=== PATIENT | female | born 1950 | race Caucasian/White ===

== ENCOUNTER 2017-01-08 08:54 | Day surgery (SDC) | payer MEDICARE, BC ==
[2017-01-02 11:27] LABS: HEMATOCRIT 40.7 % (36.0-47.0); HEMOGLOBIN 14.3 g/dL (12.0-15.5); HGB HCT DIFFERENCE 2.2; MEAN CORPUSCULAR HGB CONC 35.2 g/dL (32.0-36.0); MEAN CORPUSCULAR VOLUME 85 fl (80-97); RED BLOOD COUNT 4.77 10^6/uL (3.72-5.28); RED CELL DISTRIBUTION WIDTH 13.5 % (11.5-14.0); WHITE BLOOD COUNT 6.5 10^3/uL (4.0-10.5)
[2017-01-02 11:32] LABS: AMORPHOUS SEDIMENT,URINE TRACE /HPF; APPEARANCE,URINE TURBID; BILIRUBIN,URINE NEGATIVE (NEGATIVE); GLUCOSE, URINE NEGATIVE (NEGATIVE); KETONES,URINE NEGATIVE (NEGATIVE); LEUKOCYTE ESTERASE,URINE NEGATIVE (NEGATIVE); NITRITE,URINE NEGATIVE (NEGATIVE); PROTEIN,URINE NEGATIVE (NEGATIVE); UROBILINOGEN,URINE NEGATIVE mg/dL (<2.0)
[~2017-01-08 08:54] MED LIST: LACTATED RINGERS 1000 ML IV PRN; LIDOCAINE 0.5% INJ-PF (5 MG/ML) 50 ML SDV SUBCUT PRN
[2017-01-08] MEDS ORDERED: MIDAZOLAM 2 MG/2 ML INJ ONE (10:13)
[2017-01-08] MEDS ORDERED: FENTANYL CITRATE INJ/PF 100 MCG/2 ML AMPUL ONE (10:13)
[2017-01-08] MEDS ORDERED: PROPOFOL INJ 200 MG/20 ML VIAL IV ONE (10:13)
[2017-01-08] MEDS ORDERED: FENTANYL CITRATE INJ/PF 100 MCG/2 ML AMPUL IV PRN ×2 (10:53)
[2017-01-08] MEDS ORDERED: DIPHENHYDRAMINE HCL 50 MG/ML VIAL IV PRN (10:53)
[2017-01-08] MEDS ORDERED: OXYCODONE-ACETAMINOPHEN 5-325 MG TABLET PO PRN ×2 (11:51)
[2017-01-08] MEDS ORDERED: ONDANSETRON HCL INJ/PF 4 MG/2 ML SDV ONE (11:58)
[2017-01-08] MEDS ORDERED: LIDOCAINE 2% INJ-PF (20 MG/ML) 10 ML AMPUL ONE (11:58)
[2017-01-08] MEDS ORDERED: GLYCOPYRROLATE INJ 0.4 MG/2 ML VIAL ONE (11:58)
[2017-01-08] MEDS ORDERED: DEXAMETHASONE SOD PHOSPHATE INJ 4 MG/1 ML VIAL ONE (11:58)
--- NOTE | 2017-01-08 12:07 | OPERATIVE REPORT E ---
Operative Report NAME: DEE ALFARO : 1950 AGE: 66Y DATE OF SURGERY: 01/08/2017 ROOM: PREOPERATIVE DIAGNOSIS: Postmenopausal bleeding. POSTOPERATIVE DIAGNOSIS: Postmenopausal bleeding. PROCEDURE: Dilation and curettage. SURGEON: JANI URIARTE M.D. ANESTHESIA: Dr. Mayes with [facility]. FINDINGS: Very stenotic nulliparous appearing cervix flush to the vaginal cuff. Unable to dilate the cervix past 6 mm due to stenosis and atrophy. ESTIMATED BLOOD LOSS: 50 mL. SPECIMENS REMOVED: Endometrial curettings. PROCEDURE IN DETAIL: The patient was taken to the operating room, prepared and draped in a normal sterile fashion in a dorsal lithotomy position. Under sterile conditions, an in-and-out cath was performed with approximately 10 mL of clear urine. A sterile speculum was then placed into the vagina. The cervix was prepped with Betadine and grasped on the anterior aspect with a single tooth tenaculum. Starting with the micro dilators, I was able to pass through the cervical os but was never able to pass the sound. I did serial dilation until I reached a 6 mm Portuguese but was not able to dilate further. I did attempt to pass a regular small curette but was unable to pass this, so I did ask for the Kevorkian curette and passed this without too much difficulty with several passes to obtain adequate sampling. Sampling was placed on Telfa and passed off the field. Throughout this procedure, the tenaculum unfortunately did tear through the cervix a few times. I removed the tenaculum at this point and noticed that there was a small amount of bleeding that dampened with some tamponade, however, due to its continued oozing I did place a stitch with 2-0 chromic at the anterior left aspect of the cervix for hemostasis. Hemostasis was obtained at this point and all instruments were removed. The patient was taken down from dorsal lithotomy position and taken to recovery in stable condition. DICTATING PHYSICIAN: JANI URIARTE M.D. [id number] PHY#: [id number] ID: [id number] JOB#: [id number] ACCT: [id number] cc:JANI URIARTE M.D. >
[2017-01-08] MEDS ORDERED: IBUPROFEN 800 MG TABLET PO PRN (12:15)
[2017-01-08] MEDS ORDERED: MORPHINE SULFATE 10 MG/ML INJ IM PRN (12:15)
[2017-01-08 13:53] VITALS: BP 146/74
== END 2017-01-08 13:25 | disposition home or self-care (01) ==
LOC: OROUT 08:54
PROVIDERS: ATTEND Obstetrics & Gynecology
PROC: 0UDB7ZX Extraction of Endometrium, Via Natural or Artificial Opening, Diagnostic (ICD-10-PCS; principal; 2017-01-08 11:00)
DX: N95.0 Postmenopausal bleeding (principal); N88.2 Stricture and stenosis of cervix uteri; N93.9 Abnormal uterine and vaginal bleeding, unspecified; E78.00 Pure hypercholesterolemia, unspecified; Z87.891 Personal history of nicotine dependence
CPT/HCPCS: 36415; 85027; 81001; 88305 ×2; 58120; J2250; J1100; J3010; J2405; J2704; J3490; 940

== ENCOUNTER 2017-10-03 19:38 | Emergency (ER) | payer MEDICARE, BC ==
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
--- NOTE | 2017-10-03 21:12 | RADIOLOGY REPORT (SQ) ---
EXAM DESCRIPTION: T SPINE AP/LAT COMPLETED DATE/TIME: 10/03/2017 8:40 pm REASON FOR STUDY: TTP at T12 L1 COMPARISON: None. NUMBER OF VIEWS: Two views. TECHNIQUE: AP and lateral radiographic images acquired of the thoracic spine. LIMITATIONS: None. FINDINGS: MINERALIZATION: Normal. ALIGNMENT: Normal. No scoliosis. VERTEBRAE: No fracture or bone lesion. Maintained height, normal segmentation. DISCS: Multilevel disc space narrowing with osteophytes. HARDWARE: None in the spine. MEDIASTINUM AND SOFT TISSUES: Normal heart size and aortic contour. No soft tissue abnormality. VISUALIZED LUNG RUELAS: Clear. OTHER: No other significant finding. IMPRESSION: SPONDYLOSIS WITHOUT BONE LESION OR FRACTURE. TECHNICAL DOCUMENTATION: JOB ID: [id number] [id number] 2010 [employer]- All Rights Reserved Reading location - IP/workstation name: [email or web address]
--- NOTE | 2017-10-03 21:13 | RADIOLOGY REPORT (SQ) ---
EXAM DESCRIPTION: L SPINE WHOLE COMPLETED DATE/TIME: 10/03/2017 8:40 pm REASON FOR STUDY: TTP at T12 L1 COMPARISON: None. NUMBER OF VIEWS: Five views including obliques. TECHNIQUE: AP, lateral, oblique, and sacral radiographic images acquired of the lumbar spine. LIMITATIONS: None. FINDINGS: MINERALIZATION: Normal. SEGMENTATION: Normal. No transitional anatomy. ALIGNMENT: Grade 2 anterolisthesis of L5 on S1 due to bilateral pars interarticularis defects. VERTEBRAE: Maintained height. No fracture or worrisome bone lesion. DISCS: Multilevel disc space narrowing with osteophytes. POSTERIOR ELEMENTS: Grade 2 anterolisthesis of L5 on S1 due to bilateral pars interarticularis defect s.Facet arthropathy is present. HARDWARE: None in the spine. PARASPINAL SOFT TISSUES: Normal. PELVIS: Intact as visualized. No fractures or worrisome bone lesions. SI joints intact. OTHER: No other significant finding. IMPRESSION: Grade 2 anterolisthesis of L5 on S1 due to bilateral pars interarticularis defects. No acute fracture. TECHNICAL DOCUMENTATION: JOB ID: [id number] [id number] 2010 [employer]- All Rights Reserved Reading location - IP/workstation name: [email or web address]
[2017-10-03] MEDS ORDERED: HYDROCODONE/ACETAMINOPHEN 5-325 MG TABLET PO ONE (21:44)
[2017-10-03 21:59] VITALS: BP 158/72
== END 2017-10-03 21:59 | disposition home or self-care (01) ==
LOC: ER 19:38
DX: M43.17 Spondylolisthesis, lumbosacral region (principal); M54.5 Low back pain; V18.2XXA Unspecified pedal cyclist injured in noncollision transport accident in nontraffic accident, initial encounter; Y92.009 Unspecified place in unspecified non-institutional (private) residence as the place of occurrence of the external cause; R26.2 Difficulty in walking, not elsewhere classified; F03.90 Unspecified dementia, unspecified severity, without behavioral disturbance, psychotic disturbance, mood disturbance, and anxiety; Z87.891 Personal history of nicotine dependence
CPT/HCPCS: 99283; 72110; 72070; A9270

== ENCOUNTER 2017-10-05 09:34 | Observation (INO) | payer MEDICARE, BC ==
[2017-10-05] MEDS ORDERED: OXYCODONE-ACETAMINOPHEN 5-325 MG TABLET PO ONE (10:01)
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
[2017-10-05] MEDS ORDERED: METHYLPREDNISOLONE INJ 125 MG/2 ML SDV IV ONE (11:47)
[2017-10-05] MEDS ORDERED: LIDOCAINE 5% (700 MG) TRANSDERMAL ADH..PATCH TP ONE (15:50)
[2017-10-05 16:05] LABS: ABSOLUTE LYMPHOCYTES (AUTO) 0.6 10^3/uL (0.5-4.7); ABSOLUTE MONOCYTES (AUTO) 0.1 10^3/uL (0.1-1.4); ABSOLUTE NEUT (AUTO) 9.2 10^3/uL (1.7-8.2); BASOPHILS % (AUTO) 0.5 % (0-2); EOSINOPHILS % (AUTO) 0.1 % (0-6); HEMOGLOBIN 13.9 g/dL (12.0-15.5); LYMPHOCYTES % (AUTO) 6.1 % (13-45); MEAN CORPUSCULAR HEMOGLOBIN 29.4 pg (27.0-33.4); MEAN CORPUSCULAR HGB CONC 34.8 g/dL (32.0-36.0); MEAN CORPUSCULAR VOLUME 84 fl (80-97); MONOCYTES % (AUTO) 1.2 % (3-13); PLATELET COUNT 203 10^3/uL (150-450); RED BLOOD COUNT 4.74 10^6/uL (3.72-5.28); RED CELL DISTRIBUTION WIDTH 13.7 % (11.5-14.0); SEGMENTED NEUTROPHILS % (AUTO) 92.1 % (42-78); TOTAL CELLS COUNTED % (AUTO) 100 %
[2017-10-05 16:22] LABS: ALANINE AMINOTRANSFERASE 30 U/L (9-52); ALKALINE PHOSPHATASE 90 U/L (38-126); ANION GAP 12 (5-19); APPEARANCE,URINE CLOUDY; ASPARTATE AMINO TRANSFERASE 29 U/L (14-36); BILIRUBIN,DIRECT 0.2 mg/dL (0.0-0.4); BILIRUBIN,TOTAL 1.1 mg/dL (0.2-1.3); BILIRUBIN,URINE NEGATIVE (NEGATIVE); BLOOD UREA NITROGEN 12 mg/dL (7-20); CALCIUM 9.1 mg/dL (8.4-10.2); CARBON DIOXIDE 26 mmol/L (22-30); CHLORIDE 106 mmol/L (98-107); COLOR,URINE YELLOW; GLUCOSE 150 mg/dL (75-110); GLUCOSE, URINE NEGATIVE (NEGATIVE); KETONES,URINE 20 mg/dL (NEGATIVE); LEUKOCYTE ESTERASE,URINE NEGATIVE (NEGATIVE); NITRITE,URINE NEGATIVE (NEGATIVE); POTASSIUM 3.9 mmol/L (3.6-5.0); PROTEIN,URINE 30 mg/dL (NEGATIVE); TOTAL PROTEIN 6.9 g/dL (6.3-8.2); URINE SPECIFIC GRAVITY 1.024; UROBILINOGEN,URINE NEGATIVE mg/dL (<2.0)
[2017-10-05] MEDS ORDERED: METHYLPREDNISOLONE DOSEPAK (4 MG/TAB) 21 TAB/DSPK PO PRN (18:49)
[2017-10-05] MEDS ORDERED: HYDROMORPHONE HCL INJ/PF 2 MG/ML AMPULE IV PRN (18:53)
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
--- NOTE | 2017-10-05 22:09 | EKG REPORT ---
SEVERITY:- OTHERWISE NORMAL ECG - SINUS RHYTHM BORDERLINE RIGHT AXIS DEVIATION : Confirmed by: Amanda Jaeger 05-Oct-2017 22:08:33
[2017-10-06] MEDS ORDERED: METHYLPREDNISOLONE DOSEPAK (4 MG/TAB) 21 TAB/DSPK PO PRN (08:00)
[2017-10-06 08:09] LABS: HEMATOCRIT 43.5 % (36.0-47.0); MEAN CORPUSCULAR HEMOGLOBIN 29.1 pg (27.0-33.4); MEAN CORPUSCULAR HGB CONC 34.6 g/dL (32.0-36.0); MEAN CORPUSCULAR VOLUME 84 fl (80-97); PLATELET COUNT 240 10^3/uL (150-450); RED BLOOD COUNT 5.17 10^6/uL (3.72-5.28); RED CELL DISTRIBUTION WIDTH 13.5 % (11.5-14.0); WHITE BLOOD COUNT 14.9 10^3/uL (4.0-10.5)
[2017-10-06 08:20] LABS: ANION GAP 14 (5-19); BLOOD UREA NITROGEN 14 mg/dL (7-20); CALCIUM 9.6 mg/dL (8.4-10.2); CARBON DIOXIDE 26 mmol/L (22-30); CHLORIDE 107 mmol/L (98-107); GLUCOSE 120 mg/dL (75-110); POTASSIUM 3.8 mmol/L (3.6-5.0); SODIUM 146.9 mmol/L (137-145)
[2017-10-06] MEDS ORDERED: ASPIRIN 81 MG TABLET, ENT COATED PO SCH (10:00)
[2017-10-06] MEDS ORDERED: MEMANTINE HCL 10 MG TABLET PO SCH (10:00)
[2017-10-06] MEDS: DONEPEZIL HCL 5 MG TABLET PO SCH (11:52)
[2017-10-06] MEDS: ENOXAPARIN SODIUM INJ 40 MG/0.4 ML DISP.SYRIN SUBCUT SCH (11:52)
[2017-10-06] MEDS: ACETAMINOPHEN 325 MG TABLET PO PRN ×2 (12:04→17:15)
[2017-10-06] MEDS ORDERED: MEDROL DOSEPAK (DAY 1 BRKFST) (EDIT AFTER 0800) PO ONE (13:00)
[2017-10-06] MEDS ORDERED: MEDROL DOSEPAK (DAY 1 LUNCH & SUPPER) (EDIT AFTER 0800) PO SCH (13:00)
[2017-10-06] MEDS: MEDROL DOSEPAK (DAY 1 LUNCH & SUPPER) (EDIT AFTER 0800) PO SCH ×2 (13:08→17:18)
[2017-10-06] MEDS: MEMANTINE HCL 10 MG TABLET PO SCH (17:18)
--- NOTE | 2017-10-06 17:57 | PDOC PROGRESS REPORT ---
Subjective Progress Note for:: 10/06/17 Subjective:: pt was able to walk today with 2 person assist and PT, no acute pain reported now, per she is getting confused, no adverse events overnight, eating and drinking fine. Had 1 dose of Dilaudid yesterday and but has only been requiring Tylenol today. No bowel or bladder incontinence. No tingling or numbness. Reason For Visit: ACUTE BACK PAIN WITH DISK BULGING Physical Exam Vital Signs: Temp Pulse Resp BP Pulse Ox 98.7 F 96 16 136/77 H 99 10/06/17 11:07 10/06/17 11:07 10/06/17 11:07 10/06/17 11:07 10/06/17 11:07 Intake & Output 10/05/17 10/06/17 10/07/17 06:59 06:59 06:59 Intake Total 200 Balance 200 Weight 46.9 kg General appearance: PRESENT: no acute distress, thin Head exam: PRESENT: atraumatic, normocephalic Eye exam: ABSENT: conjunctival injection, scleral icterus Respiratory exam: PRESENT: clear to auscultation sha, unlabored. ABSENT: rales , rhonchi, wheezes Pulses: PRESENT: normal radial pulses GI/Abdominal exam: PRESENT: normal bowel sounds, soft. ABSENT: distended, tenderness Rectal exam: PRESENT: deferred Extremities exam: ABSENT: pedal edema Neurological exam: PRESENT: alert, awake, oriented to person, other - Strength 5 out of 5 in all extremities. Sensation to soft touch intact.. ABSENT: oriented to place, oriented to situation Psychiatric exam: PRESENT: anxious Skin exam: PRESENT: dry, intact, warm Results Laboratory Results: 10/06/17 07:03 10/06/17 07:03 10/06/17 10/06/17 07:03 07:03 WBC 14.9 H RBC 5.17 Hgb 15.0 Hct 43.5 MCV 84 MCH 29.1 MCHC 34.6 RDW 13.5 Plt Count 240 Sodium 146.9 H Potassium 3.8 Chloride 107 Carbon Dioxide 26 Anion Gap 14 BUN 14 Creatinine 0.54 Est GFR ( Amer) > 60 Est GFR (Non-Af Amer) > 60 Glucose 120 H Calcium 9.6 Impressions: Lumbar Spine CT 10/05/17 09:54 IMPRESSION: 1. Lumbar spondylosis. 2. At L4-5 there is a broad-based circumferential bulging disc. Facet arthropathy and hypertrophy. At L5-S1, there is spondylolysis of L5 and grade 2 anterolisthesis of L5 on S1. Changes of degenerative disc disease and and degenerative spondylosis. Foraminal stenosis bilaterally. Assessment & Plan - Diagnosis (1) L4-L5 disc bulge Is this a current diagnosis for this admission?: Yes Plan: Patient has improving pain. We will continue as needed Dilaudid and Tylenol as needed. She is also on a Medrol Dosepak. I think she is improving. She was able to walk with physical therapy today but later in the day she was not able to walk again secondary to pain. No concerning neurologic findings or symptoms. (2) Spondylolysis of lumbosacral region Is this a current diagnosis for this admission?: Yes Plan: Patient is improving overall on her Medrol Dosepak. We will continue as needed Dilaudid and as needed Tylenol. We will continue physical therapy. She is not yet safe for discharge home. (3) Hyperlipidemia Is this a current diagnosis for this admission?: Yes Plan: Continue her statin (4) Moderate dementia without behavioral disturbance Is this a current diagnosis for this admission?: Yes Plan: Patient is starting to become a little bit agitated. is working to keep her calm. (5) Intractable back pain Is this a current diagnosis for this admission?: Yes Plan: Improving. She had 1 dose of Dilaudid last night and today has been using Tylenol with decent effect. I think the Medrol Dosepak is doing a a positive impact - Time Time Spent with patient: 15-24 minutes - Plan Summary Plan Summary: I spoke with EHR today who made me aware that the patient does not meet criteria for inpatient, she has been changed to observation status.
[2017-10-06] MEDS ORDERED: MEDROL DOSEPAK (DAY 1 BEDTIME DOSE) (EDIT AFTER 0800) PO SCH ×2 (22:00)
[2017-10-06] MEDS: ATORVASTATIN CALCIUM 20 MG TABLET PO SCH (22:43)
[2017-10-06] MEDS ORDERED: METHYLPREDNISOLONE DOSEPAK (4 MG/TAB) 21 TAB/DSPK ONE (22:44)
[2017-10-07 06:41] LABS: HEMATOCRIT 41.2 % (36.0-47.0); HEMOGLOBIN 14.3 g/dL (12.0-15.5); MEAN CORPUSCULAR HEMOGLOBIN 29.4 pg (27.0-33.4); MEAN CORPUSCULAR HGB CONC 34.7 g/dL (32.0-36.0); MEAN CORPUSCULAR VOLUME 85 fl (80-97); PLATELET COUNT 251 10^3/uL (150-450); RED BLOOD COUNT 4.86 10^6/uL (3.72-5.28); RED CELL DISTRIBUTION WIDTH 13.5 % (11.5-14.0); WHITE BLOOD COUNT 11.1 10^3/uL (4.0-10.5)
[2017-10-07 07:10] LABS: ANION GAP 10 (5-19); BLOOD UREA NITROGEN 18 mg/dL (7-20); CALCIUM 9.5 mg/dL (8.4-10.2); CARBON DIOXIDE 27 mmol/L (22-30); CHLORIDE 107 mmol/L (98-107); GLUCOSE 119 mg/dL (75-110); POTASSIUM 4.5 mmol/L (3.6-5.0); SODIUM 144.1 mmol/L (137-145)
[2017-10-07] MEDS ORDERED: MEDROL DOSEPAK (DAY 1 BRKFST) (EDIT AFTER 0800) PO SCH (08:00)
[2017-10-07] MEDS ORDERED: MEDROL DOSEPAK (DAY 2 BRKFST, LUNCH, SUPPER) PO SCH (08:00)
[2017-10-07] MEDS: MEDROL DOSEPAK (DAY 2 BRKFST, LUNCH, SUPPER) PO SCH ×3 (10:05→21:41)
[2017-10-07] MEDS: MEMANTINE HCL 10 MG TABLET PO SCH ×2 (10:05→21:42)
[2017-10-07] MEDS: DONEPEZIL HCL 5 MG TABLET PO SCH (10:07)
[2017-10-07] MEDS: ENOXAPARIN SODIUM INJ 40 MG/0.4 ML DISP.SYRIN SUBCUT SCH (10:07)
--- NOTE | 2017-10-07 19:13 | PDOC PROGRESS REPORT ---
Subjective Progress Note for:: 10/07/17 Subjective:: Slowly improving. Still with back pain. Physical therapy and progress. Reason For Visit: ACUTE BACK PAIN WITH DISK BULGING Physical Exam Vital Signs: Temp Pulse Resp BP Pulse Ox 98.4 F 82 18 132/63 H 98 10/07/17 15:37 10/07/17 15:37 10/07/17 15:37 10/07/17 15:37 10/07/17 15:37 Intake & Output 10/06/17 10/07/17 10/08/17 06:59 06:59 06:59 Intake Total 200 236 384 Balance 200 236 384 Weight 46.9 kg 47.4 kg General appearance: PRESENT: no acute distress, thin Head exam: PRESENT: atraumatic, normocephalic Eye exam: ABSENT: conjunctival injection, scleral icterus Respiratory exam: PRESENT: clear to auscultation sha, unlabored. ABSENT: rales , rhonchi, wheezes Pulses: PRESENT: normal radial pulses GI/Abdominal exam: PRESENT: normal bowel sounds, soft. ABSENT: distended, tenderness Rectal exam: PRESENT: deferred Extremities exam: ABSENT: pedal edema Neurological exam: PRESENT: alert, awake, oriented to person, other - Strength 5 out of 5 in all extremities. Sensation to soft touch intact.. ABSENT: oriented to place, oriented to situation Psychiatric exam: PRESENT: anxious Skin exam: PRESENT: dry, intact, warm Results Laboratory Results: 10/07/17 05:25 10/07/17 05:25 10/07/17 10/07/17 05:25 05:25 WBC 11.1 H RBC 4.86 Hgb 14.3 Hct 41.2 MCV 85 MCH 29.4 MCHC 34.7 RDW 13.5 Plt Count 251 Sodium 144.1 Potassium 4.5 Chloride 107 Carbon Dioxide 27 Anion Gap 10 BUN 18 Creatinine 0.58 Est GFR ( Amer) > 60 Est GFR (Non-Af Amer) > 60 Glucose 119 H Calcium 9.5 Impressions: Lumbar Spine CT 10/05/17 09:54 IMPRESSION: 1. Lumbar spondylosis. 2. At L4-5 there is a broad-based circumferential bulging disc. Facet arthropathy and hypertrophy. At L5-S1, there is spondylolysis of L5 and grade 2 anterolisthesis of L5 on S1. Changes of degenerative disc disease and and degenerative spondylosis. Foraminal stenosis bilaterally. Assessment & Plan - Plan Summary Plan Summary: (1) L4-L5 disc bulge Is this a current diagnosis for this admission?: Yes Plan: Patient has improving pain. We will continue as needed Dilaudid and Tylenol as needed. She is also on a Medrol Dosepak. She appears to be improving. Continue with physical therapy, Medrol Dosepak. No concerning neurologic findings or symptoms. (2) Spondylolysis of lumbosacral region Is this a current diagnosis for this admission?: Yes Plan: Patient is improving overall on her Medrol Dosepak. We will continue as needed Dilaudid and as needed Tylenol. We will continue physical therapy. She is not yet safe for discharge home. (3) Hyperlipidemia Is this a current diagnosis for this admission?: Yes Plan: Continue her statin (4) Moderate dementia without behavioral disturbance Is this a current diagnosis for this admission?: Yes Plan: Stable. (5) Intractable back pain Is this a current diagnosis for this admission?: Yes Plan: As in #1
[2017-10-07] MEDS: ATORVASTATIN CALCIUM 20 MG TABLET PO SCH (21:40)
[2017-10-07] MEDS ORDERED: MEDROL DOSEPAK (DAY 2 HS) PO SCH (22:00)
[2017-10-07] MEDS: MEDROL DOSEPAK (DAY 2 HS) PO SCH ×2 (22:01→22:33)
[2017-10-08 06:46] LABS: HEMATOCRIT 42.2 % (36.0-47.0); HEMOGLOBIN 14.5 g/dL (12.0-15.5); MEAN CORPUSCULAR HGB CONC 34.4 g/dL (32.0-36.0); MEAN CORPUSCULAR VOLUME 84 fl (80-97); PLATELET COUNT 276 10^3/uL (150-450); RED CELL DISTRIBUTION WIDTH 13.7 % (11.5-14.0); WHITE BLOOD COUNT 9.1 10^3/uL (4.0-10.5)
[2017-10-08 07:14] LABS: ANION GAP 13 (5-19); BLOOD UREA NITROGEN 20 mg/dL (7-20); CALCIUM 9.2 mg/dL (8.4-10.2); CARBON DIOXIDE 23 mmol/L (22-30); CHLORIDE 110 mmol/L (98-107); GLUCOSE 116 mg/dL (75-110); POTASSIUM 4.6 mmol/L (3.6-5.0); SODIUM 145.6 mmol/L (137-145)
[2017-10-08] MEDS ORDERED: MEDROL DOSEPAK (DAY 3) PO SCH (08:00)
[2017-10-08] MEDS: MEDROL DOSEPAK (DAY 3) PO SCH ×4 (11:05→22:12)
[2017-10-08] MEDS: DONEPEZIL HCL 5 MG TABLET PO SCH (11:06)
[2017-10-08] MEDS: ENOXAPARIN SODIUM INJ 40 MG/0.4 ML DISP.SYRIN SUBCUT SCH (11:06)
[2017-10-08] MEDS: MEMANTINE HCL 10 MG TABLET PO SCH ×2 (11:07→18:59)
[2017-10-08] MEDS: ACETAMINOPHEN 325 MG TABLET PO PRN (13:55)
--- NOTE | 2017-10-08 19:16 | PDOC PROGRESS REPORT ---
Subjective Progress Note for:: 10/08/17 Subjective:: No adverse events overnight. No new complaints. Vital signs been stable. Chief complaint is still just pain in her lower back. She does not have any radiation of her pain down her legs. She has no numbness or tingling in her lower extremities. She demonstrated the ability to wiggle her toes and lift her legs up and down off the bed independently with good strength. Reason For Visit: ACUTE BACK PAIN WITH DISK BULGING Physical Exam Vital Signs: Temp Pulse Resp BP Pulse Ox 99.0 F 81 16 138/78 H 99 10/08/17 16:29 10/08/17 16:29 10/08/17 16:29 10/08/17 16:29 10/08/17 16:29 Intake & Output 10/07/17 10/08/17 10/09/17 06:59 06:59 06:59 Intake Total 236 634 762 Balance 236 634 762 Weight 47.4 kg 47.4 kg General appearance: PRESENT: no acute distress, disheveled Respiratory exam: PRESENT: clear to auscultation sha, unlabored. ABSENT: accessory muscle use, rales, rhonchi, tachypnea, wheezes Cardiovascular exam: PRESENT: RRR. ABSENT: systolic murmur GI/Abdominal exam: PRESENT: normal bowel sounds, soft. ABSENT: guarding, rebound, tenderness Extremities exam: PRESENT: full ROM. ABSENT: pedal edema, tenderness Musculoskeletal exam: PRESENT: full ROM, normal inspection. ABSENT: deformity Neurological exam: PRESENT: alert, awake, other - Whenever I asked her questions she always deferred to her which I thought was a bit strange. ABSENT: motor sensory deficit - She had no lower extremity numbness, weakness , or tingling she was able to lift each leg off the bed independently utilizing just her hip joint. While she held her leg up off the bed at the hip, she was able to flex and extend the knee and the ankle and wiggle her toes on both feet. She was able to resist my attempts to push her legs down back onto the bed. Distal lower extremity sensation was intact. Skin exam: PRESENT: dry, warm Results Laboratory Results: 10/08/17 06:11 10/08/17 06:11 10/08/17 10/08/17 06:11 06:11 WBC 9.1 RBC 5.00 Hgb 14.5 Hct 42.2 MCV 84 MCH 29.0 MCHC 34.4 RDW 13.7 Plt Count 276 Sodium 145.6 H Potassium 4.6 Chloride 110 H Carbon Dioxide 23 Anion Gap 13 BUN 20 Creatinine 0.52 Est GFR ( Amer) > 60 Est GFR (Non-Af Amer) > 60 Glucose 116 H Calcium 9.2 Impressions: Lumbar Spine CT 10/05/17 09:54 IMPRESSION: 1. Lumbar spondylosis. 2. At L4-5 there is a broad-based circumferential bulging disc. Facet arthropathy and hypertrophy. At L5-S1, there is spondylolysis of L5 and grade 2 anterolisthesis of L5 on S1. Changes of degenerative disc disease and and degenerative spondylosis. Foraminal stenosis bilaterally. Assessment & Plan - Diagnosis (1) L4-L5 disc bulge Is this a current diagnosis for this admission?: Yes Plan: She has no back pain at rest. She had evidence of some spondylosis but no spondylolysis. She had no evidence of any cord compromise. She did have some foraminal stenosis at this level. None of these were critical on CT. At this point she just needs pain control and mobilization. Apparently someone in the ER told her that she would need a neurosurgical consultation but I do not see anything on her imaging or her examination to warrant consultation with a neurosurgeon at this point. - Time Time Spent with patient: 15-24 minutes
[2017-10-08] MEDS: ATORVASTATIN CALCIUM 20 MG TABLET PO SCH (22:13)
[2017-10-09] MEDS ORDERED: MEDROL DOSEPAK (DAY 4) PO SCH ×2 (08:00)
[2017-10-09] MEDS: ENOXAPARIN SODIUM INJ 40 MG/0.4 ML DISP.SYRIN SUBCUT SCH (10:58)
[2017-10-09] MEDS: MEMANTINE HCL 10 MG TABLET PO SCH (10:59)
[2017-10-09] MEDS: DONEPEZIL HCL 5 MG TABLET PO SCH (10:59)
[2017-10-09] MEDS: ACETAMINOPHEN 325 MG TABLET PO PRN (11:06)
[2017-10-09 17:05] VITALS: BP 159/73
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
[2017-10-10] MEDS ORDERED: MEDROL DOSEPAK (DAY 5) PO SCH ×2 (08:00)
[2017-10-11] MEDS ORDERED: MEDROL DOSEPAK (DAY 6) PO SCH ×2 (08:00)
== END 2017-10-09 18:20 | disposition home health service (06) ==
LOC: ER 09:34 → EH 18:11 → INTOOBSV 18:11 → 4S 23:30
PROVIDERS: ADMIT Internal Medicine; ATTEND Internal Medicine
DX: M51.26 Other intervertebral disc displacement, lumbar region (principal); M47.897 Other spondylosis, lumbosacral region; V19.9XXA Pedal cyclist (driver) (passenger) injured in unspecified traffic accident, initial encounter; Y93.55 Activity, bike riding; F03.90 Unspecified dementia, unspecified severity, without behavioral disturbance, psychotic disturbance, mood disturbance, and anxiety; E78.5 Hyperlipidemia, unspecified; R26.2 Difficulty in walking, not elsewhere classified; R45.1 Restlessness and agitation; M19.90 Unspecified osteoarthritis, unspecified site; Z87.891 Personal history of nicotine dependence; Z79.82 Long term (current) use of aspirin; Z79.899 Other long term (current) drug therapy
CPT/HCPCS: 93005; 99285; 51701; 96374; 36415 ×4; 87040; 87086; 85025; 85027 ×3; 87077; 80048 ×3; 80053; 81001; 87186; 72131; 93010; 97530 ×2; 97110 ×2; 97163; G0378 ×6; A9270 ×13; J7509; J2930; J1650 ×4; J3490; G8981; G8982; 72070; 72110